=== PATIENT | male | born 1955 | race Caucasian/White ===

== ENCOUNTER 2016-08-16 21:58 | Emergency (ER) | payer MEDICARE ==
[2016-08-16] MEDS ORDERED: ASPIRIN 81 MG TABLET, CHEWABLE PO ONE (22:07)
[2016-08-16] MEDS ORDERED: NITROGLYCERIN 0.4 MG/TAB 25 TAB/BOTTLE SL PRN (23:53)
--- NOTE | 2016-08-16 23:59 | ER Document Report ---
ED Cardiac - General Chief Complaint: Chest Pain Stated Complaint: CHEST PAIN Notes: The patient is a 61-year-old male, past medical history hypertension, hyperlipidemia, smoker, presents with 3 days of constant epigastric and lower sternal chest pain. Pain is a dull ache and is not associated with exertion or food. He has not had this in the past. He denies shortness of breath, nausea, vomiting, tingling, fevers, leg swelling, headache or back pain. TRAVEL OUTSIDE OF THE [place] IN LAST 30 DAYS: No - Related Data Allergies/Adverse Reactions: Penicillins Allergy (Mild, Verified 07/31/14 23:28) Hives azithromycin [From Zithromax] Allergy (Verified 07/31/14 23:28) Past Medical History - General Information source: Patient - Social History Smoking Status: Current Every Day Smoker Family History: Reviewed & Not Pertinent Patient has suicidal ideation: No Patient has homicidal ideation: No - Past Medical History Cardiac Medical History: Reports: Hx Atrial Fibrillation, Hx Hypercholesterolemia, Hx Hypertension Denies: Hx Congestive Heart Failure, Hx Coronary Artery Disease, Hx Heart Attack, Hx Peripheral Vascular Disease, Hx Pulmonary Embolism, Hx Heart Murmur Pulmonary Medical History: Reports: Hx Asthma, Hx Bronchitis, Hx COPD, Hx Pneumonia Denies: Hx Respiratory Failure, Hx Sleep Apnea, Hx Tuberculosis Neurological Medical History: Denies: Hx Cerebrovascular Accident, Hx Seizures Endocrine Medical History: Denies: Hx Graves' Disease, Hx Hyperthyroidism, Hx Hypothyroidism Renal/ Medical History: Denies: Hx Benign Prostatic Hyperplasia, Hx End Stage Renal Disease, Hx Kidney Stones, Hx Peritoneal Dialysis Malignancy Medical History: Denies Hx Leukemia, Denies Hx Lung Cancer GI Medical History: Denies: Hx Crohn's Disease, Hx Gastroesophageal Reflux Disease, Hx Hiatal Hernia, Hx Irritable Bowel, Hx Liver Failure, Hx Ulcer Musculoskeltal Medical History: Denies Hx Arthritis, Denies Hx Fibromyalgia, Denies Hx Multiple Sclerosis, Denies Hx Muscular Dystrophy Psychiatric Medical History: Denies: Hx Bipolar Disorder, Hx Dementia, Hx Depression, Hx Post Traumatic Stress Disorder, Hx Schizophrenia Traumatic Medical History: Reports: Hx Fractures - pelvis Infectious Medical History: Denies: Hx HIV Past Surgical History: Reports: Hx Orthopedic Surgery, Hx Testicular Surgery, Hx Tonsillectomy. Denies: Hx Appendectomy, Hx Bowel Surgery, Hx Cholecystectomy , Hx Colostomy, Hx Coronary Artery Bypass Graft, Hx Gastric Bypass Surgery, Hx Herniorrhaphy, Hx Pacemaker - Immunizations Hx Diphtheria, Pertussis, Tetanus Vaccination: Yes Hx Pneumococcal Vaccination: 11/02/09 Review of Systems - Review of Systems Notes: REVIEW OF SYSTEMS: CONSTITUTIONAL: -fevers, -chills EENT: -eye pain, -difficulty swallowing, -nasal congestion CARDIOVASCULAR: +chest pain, -syncope. RESPIRATORY: -cough, -SOB GASTROINTESTINAL: -abdominal pain, -nausea, -vomiting, -diarrhea GENITOURINARY: -dysuria, -hematuria MUSCULOSKELETAL: -back pain, -neck pain SKIN: -rash or skin lesions. HEMATOLOGIC: -easy bruising or bleeding. LYMPHATIC: -swollen, enlarged glands. NEUROLOGICAL: -altered mental status or loss of consciousness, -headache, - neurologic symptoms PSYCHIATRIC: -anxiety, -depression. ALL OTHER SYSTEMS REVIEWED AND NEGATIVE. Physical Exam - Vital signs Vitals: Temp Pulse Resp BP Pulse Ox 98.1 F 81 23 H 126/76 H 95 08/16/16 22:04 08/16/16 22:04 08/16/16 22:04 08/16/16 22:04 08/16/16 22:04 - Notes Notes: PHYSICAL EXAMINATION: GENERAL: Well-appearing, well-nourished and in no acute distress. HEAD: Atraumatic, normocephalic. EYES: Pupils equal round and reactive to light, extraocular movements intact, sclera anicteric, conjunctiva are normal. ENT: nares patent, oropharynx clear without exudates. Moist mucous membranes. NECK: Normal range of motion, supple without lymphadenopathy LUNGS: Breath sounds clear to auscultation bilaterally and equal. No wheezes rales or rhonchi. HEART: Regular rate and rhythm without murmurs ABDOMEN: Soft, nontender, normoactive bowel sounds. No guarding, no rebound. No masses appreciated. EXTREMITIES: Normal range of motion, no pitting or edema. No cyanosis. NEUROLOGICAL: Cranial nerves grossly intact. Normal speech, normal gait. Normal sensory, motor, and reflex exams. PSYCH: Normal mood, normal affect. SKIN: Warm, Dry, normal turgor, no rashes or lesions noted. Course - Re-evaluation Re-evalutation: Pt's HEART score is 3. Symptoms atypical for PE or aortic dissection at this time. Nitro did not change his pain. Offered patient admission and further evaluation, but he would like to follow-up with his primary care physician, Dr. Pandey, on Friday. Given strict return precautions and he understands. - Vital Signs Vital signs: Temp Pulse Resp BP Pulse Ox 98.1 F 60 20 110/76 94 08/16/16 22:04 08/17/16 00:07 08/17/16 01:01 08/17/16 01:00 08/17/16 01:01 - Laboratory Result Diagrams: 08/17/16 00:15 08/17/16 00:15 Laboratory results interpreted by me: 08/17/16 08/17/16 00:15 00:15 WBC 11.9 H RDW 14.7 H Chloride 108 H Glucose 150 H Creatine Kinase 54 L - Diagnostic Test Radiology reviewed: Image reviewed, Reports reviewed - EKG Interpretation by Me EKG shows normal: Sinus rhythm, [place], Intervals, QRS Complexes, ST-T Waves When compared to previous EKG there are: No significant change Discharge - Discharge Clinical Impression: Chest pain Qualifiers: Chest pain type: unspecified Qualified Code(s): R07.9 - Chest pain, unspecified Condition: Good Disposition: HOME, SELF-CARE Additional Instructions: CHEST PAIN OF UNCLEAR CAUSE: The exact cause of your chest pain isn't clear. Fortunately, there is no evidence of a dangerous medical condition. Further testing may be required to find the source of the pain. Most often, we find that this pain is coming from the chest wall -- the muscles or rib joints in the chest. But chest pain can come from the lung and lung lining, the esophagus, the heart valves or heart lining, and even the stomach or gallbladder. Rest. Eat lightly until the pain is gone. We may prescribe medicine for pain and inflammation. You should call the physician immediately if the pain radiates to the shoulder, jaw or arms; if you start to run a fever or develop a cough; or if you develop shortness of breath, or other new or alarming symptoms. NORMAL EXAM AND WORKUP: At this time, your examination and workup show no significant abnormality. No significant abnormal physical findings were noted. All laboratory, EKG, and imaging (x-ray, CT scans, ultrasound) studies that were ordered show no significant abnormality. Although your examination and all studies that were ordered showed no significant abnormal finding, there are no examinations and no studies that are 100% accurate. There is always the possibility that some abnormality could exist and not be detected with physical examination or within the limits and capabilities of laboratory and other studies. You should return or follow up as you were instructed on your visit today for further evaluation if your symptoms do not resolve. CHEST WALL PAIN: Your chest pain may be coming from the chest wall. This is often caused by straining the muscles or joints in the chest during physical activity, direct trauma, coughing, or vigorous vomiting. Persons with arthritis are especially prone to this type of pain, due to inflammation of the cartilage joints near the breast bone. Occasionally, no cause can be found. Rest from strenuous physical activity. This kind of chest pain is usually made worse by movement of the chest. Depending on the symptoms, we may prescribe medicine for pain, muscle relaxation, and antiinflammatory effects. If the pain is new, and seems to be due to muscle strain, cold packs can help. Otherwise, apply gentle warmth to the painful area for 15 minutes every hour or two. You should call contact the doctor immediately if things change. Further evaluation is needed if you develop a fever or cough, if the nature of the pain changes, or if you become short of breath. ANGINA EPISODE: Your physician has diagnosed the pain you experienced as an episode of angina. Angina occurs when a portion of the heart muscle temporarily lacks oxygen. It does not cause any permanent heart damage, but serves as a warning. Hospitalization is not necessary now. Evaluation of your cardiac condition , and medical therapy for angina will be necessary. It's important you be sure to keep all appointments and take medication exactly as prescribed. Angina is usually treated with a type of "nitrate" medication. This is available as ointment, pills, or sublingual (under the tongue) tablets. Depending on your clinical situation, other medications may be added to help control angina. These may include beta blockers or calcium blockers. If episodes of angina are occurring with increased frequency, or if chest pain lasts longer than 15 minutes or does not respond to nitroglycerin, you must seek emergency medical care immediately. ACID REFLUX DISEASE (GERD): Gastro-Esophageal Reflux Disease (GERD) is caused by stomach acid refluxing back up into the esophagus. The valve at the end of the esophagus may be weak. This is common in persons with a hiatal hernia. GERD symptoms can include indigestion, chest pain, heartburn, or food "sticking." Certain foods, alcohol, and aspirin can make GERD worse. Treatment depends on the severity. Usually, antacids or acid-suppressing medicines are used. When the esophagus is acutely inflamed, the physician will often prescribe membrane-protective drugs such as Carafate. Some patients benefit from medication such as Reglan that tightens the valve at the top of the stomach. Avoid those foods that bring on your symptoms. For many people, these foods are coffee, chocolate, onions, garlic, and carbonated drinks. Don't use alcohol, aspirin, caffeine, or tobacco. Don't eat late at night -- within 4 hours of bedtime. Don't over-eat. If necessary, elevate the head of your bed about 4 inches so that stomach acid will not roll up into your esophagus. Call the doctor if you develop severe chest pain, inability to swallow fluids, fever, or worsening symptoms. ASPIRIN: Aspirin has been shown to have a beneficial effect on blood circulation by reducing the clotting effect of platelets in the blood. These beneficial effects can be achieved by taking just a single baby (81 mg) aspirin a day. It is recommended that any person over the age of forty take a single baby aspirin every day for heart and brain circulation, unless you are allergic to aspirin or have some significant bleeding disorder. It is strongly recommended that people who have proven cardiac or blood circulation disturbances should take a baby aspirin every day. NITRATES: Nitroglycerin and related longer-acting nitrate medications are used to prevent or treat attacks of angina. These medicines dilate blood vessels, decreasing the work of the heart, and improving its supply of oxygen. Many different forms are available, including sublingual tablets (used under the tongue), sprays, skin patches, and long-acting pills. If the particular form of medication you have been given is not working well for you, contact your doctor. Long-acting forms: Take exactly as prescribed. Sudden stopping of medication can provoke increased attacks. Sublingual tabs or spray: A headache will usually occur with use. Sit or lie while waiting for the pain to go away. If angina doesn't respond to three doses (five minutes apart), call for emergency assistance. FOLLOW-UP CARE: If you have been referred to a physician for follow-up care, call the physician s office for an appointment as you were instructed or within the next two days. If you experience worsening or a significant change in your symptoms, notify the physician immediately or return to the Emergency Department at any time for re-evaluation.
--- NOTE | 2016-08-17 00:09 | EKG REPORT ---
SEVERITY:- NORMAL ECG - SINUS RHYTHM : Confirmed by: Martínez Lozano MD 17-Aug-2016 00:08:50
[2016-08-17 00:28] LABS: ABSOLUTE BASOPHILS # (AUTO) 0.1 10^3/uL (0.0-0.2); ABSOLUTE EOSINOPHILS # (AUTO) 0.4 10^3/uL (0.0-0.6); ABSOLUTE LYMPHOCYTES (AUTO) 2.7 10^3/uL (0.5-4.7); ABSOLUTE MONOCYTES (AUTO) 0.8 10^3/uL (0.1-1.4); ABSOLUTE NEUT (AUTO) 7.8 10^3/uL (1.7-8.2); BASOPHILS % (AUTO) 1.1 % (0-2); EOSINOPHILS % (AUTO) 3.6 % (0-6); LYMPHOCYTES % (AUTO) 23.1 % (13-45); MEAN CORPUSCULAR HEMOGLOBIN 30.8 pg (27.0-33.4); MEAN CORPUSCULAR HGB CONC 35.1 g/dL (32.0-36.0); MEAN CORPUSCULAR VOLUME 88 fl (80-97); MONOCYTES % (AUTO) 6.9 % (3-13); RED BLOOD COUNT 4.55 10^6/uL (4.35-5.55); RED CELL DISTRIBUTION WIDTH 14.7 % (11.5-14.0); SEGMENTED NEUTROPHILS % (AUTO) 65.3 % (42-78); WHITE BLOOD COUNT 11.9 10^3/uL (4.0-10.5)
[2016-08-17 00:49] LABS: ANION GAP 11 (5-19); BLOOD UREA NITROGEN 14 mg/dL (7-20); CALCIUM 9.3 mg/dL (8.4-10.2); CARBON DIOXIDE 25 mmol/L (22-30); CHLORIDE 108 mmol/L (98-107); CREATINE KINASE 54 U/L (55-170); CREATININE RESULT 0.71 mg/dL (0.52-1.25); GLUCOSE 150 mg/dL (75-110); POTASSIUM 3.6 mmol/L (3.6-5.0); SODIUM 144.2 mmol/L (137-145)
[2016-08-17 01:03] VITALS: BP 110/76
[2016-08-17 01:12] LABS: TROPONIN I < 0.012 ng/mL
[2016-08-17] MEDS ORDERED: HYDROCODONE/ACETAMINOPHEN 5-325 MG TABLET PO ONE (01:56)
== END 2016-08-17 02:07 | disposition home or self-care (01) ==
LOC: ER 21:58
DX: R07.9 Chest pain, unspecified (principal); R10.13 Epigastric pain; I10 Essential (primary) hypertension; E78.5 Hyperlipidemia, unspecified; F17.200 Nicotine dependence, unspecified, uncomplicated; I48.91 Unspecified atrial fibrillation; J44.9 Chronic obstructive pulmonary disease, unspecified; Z88.3 Allergy status to other anti-infective agents; Z88.0 Allergy status to penicillin
CPT/HCPCS: 93005; 99285; 36415; 82550; 85025; 80048; 84484; 83880; 71020; 93010; A9270 ×2

== ENCOUNTER 2016-08-18 16:37 | Observation (INO) | payer MEDICARE ==
[~2016-08-18 16:37] MED LIST: AMINOPHYLLINE INJ/PF 250 MG/10 ML SDV IV ONE; REGADENOSON INJ 0.4 MG/5 ML DISP.SYRIN IV ONE
[2016-08-18] MEDS ORDERED: ASPIRIN 81 MG TABLET, CHEWABLE PO ONE (17:03)
--- NOTE | 2016-08-18 17:07 | ER Document Report ---
ED Medical Screen (RME) - General Chief Complaint: Chest Pain Stated Complaint: CHEST PAIN Notes: Patient is here to be evaluated because he says that he's having substernal chest pain associated with nausea, lightheaded, blood pressure of. He was seen in this emergency department on Friday for the same complaint and his workup was negative and he was sent home. He says the pain is located in the mid substernal region and comes and goes. Has never had any known heart disease. Does have COPD and remains a smoker. TRAVEL OUTSIDE OF THE [place] IN LAST 30 DAYS: No - Related Data Allergies/Adverse Reactions: Penicillins Allergy (Mild, Verified 07/31/14 23:28) Hives azithromycin [From Zithromax] Allergy (Verified 07/31/14 23:28) Past Medical History - Past Medical History Cardiac Medical History: Reports: Hx Atrial Fibrillation, Hx Hypercholesterolemia, Hx Hypertension Denies: Hx Congestive Heart Failure, Hx Coronary Artery Disease, Hx Heart Attack, Hx Peripheral Vascular Disease, Hx Pulmonary Embolism, Hx Heart Murmur Pulmonary Medical History: Reports: Hx Asthma, Hx Bronchitis, Hx COPD, Hx Pneumonia Denies: Hx Respiratory Failure, Hx Sleep Apnea, Hx Tuberculosis Neurological Medical History: Denies: Hx Cerebrovascular Accident, Hx Seizures Endocrine Medical History: Denies: Hx Graves' Disease, Hx Hyperthyroidism, Hx Hypothyroidism Renal/ Medical History: Denies: Hx Benign Prostatic Hyperplasia, Hx End Stage Renal Disease, Hx Kidney Stones, Hx Peritoneal Dialysis Malignancy Medical History: Denies Hx Leukemia, Denies Hx Lung Cancer GI Medical History: Denies: Hx Crohn's Disease, Hx Gastroesophageal Reflux Disease, Hx Hiatal Hernia, Hx Irritable Bowel, Hx Liver Failure, Hx Ulcer Musculoskeltal Medical History: Denies Hx Arthritis, Denies Hx Fibromyalgia, Denies Hx Multiple Sclerosis, Denies Hx Muscular Dystrophy Psychiatric Medical History: Denies: Hx Bipolar Disorder, Hx Dementia, Hx Depression, Hx Post Traumatic Stress Disorder, Hx Schizophrenia Traumatic Medical History: Reports: Hx Fractures - pelvis Infectious Medical History: Denies: Hx HIV Past Surgical History: Reports: Hx Orthopedic Surgery, Hx Testicular Surgery, Hx Tonsillectomy. Denies: Hx Appendectomy, Hx Bowel Surgery, Hx Cholecystectomy , Hx Colostomy, Hx Coronary Artery Bypass Graft, Hx Gastric Bypass Surgery, Hx Herniorrhaphy, Hx Pacemaker - Immunizations Hx Diphtheria, Pertussis, Tetanus Vaccination: Yes Physical Exam - Vital signs Vitals: Temp Pulse Resp BP Pulse Ox 98.3 F 66 16 171/108 H 97 08/18/16 16:41 08/18/16 16:41 08/18/16 16:41 08/18/16 16:41 08/18/16 16:41 Course - Vital Signs Vital signs: Temp Pulse Resp BP Pulse Ox 98.3 F 66 16 171/108 H 97 08/18/16 16:41 08/18/16 16:41 08/18/16 16:41 08/18/16 16:41 08/18/16 16:41
--- NOTE | 2016-08-18 17:28 | ER Document Report ---
ED General - General Chief Complaint: Chest Pain Stated Complaint: CHEST PAIN Mode of Arrival: Ambulatory Information source: Patient Notes: 61-year-old presents with complaints of chest pain. Patient notes family history of coronary artery disease, he had chest pain on Friday was seen did not wish to be admitted and went home, patient had chest pain again today with tingling sensation pain down the left arm TRAVEL OUTSIDE OF THE [place] IN LAST 30 DAYS: No - HPI Onset: Other Onset/Duration: Intermittent Quality of pain: Pressure Severity: Mild Pain Level: 1 Associated symptoms: Chest pain Exacerbated by: Denies Relieved by: Denies Similar symptoms previously: Yes Recently seen / treated by doctor: Yes - Related Data Allergies/Adverse Reactions: Penicillins Allergy (Mild, Verified 07/31/14 23:28) Hives azithromycin [From Zithromax] Allergy (Verified 07/31/14 23:28) Past Medical History - Social History Smoking Status: Never Smoker Cigarette use (# per day): No Chew tobacco use (# tins/day): No Smoking Education Provided: No Family History: Reviewed & Not Pertinent Patient has suicidal ideation: No Patient has homicidal ideation: No - Past Medical History Cardiac Medical History: Reports: Hx Atrial Fibrillation, Hx Hypercholesterolemia, Hx Hypertension Denies: Hx Congestive Heart Failure, Hx Coronary Artery Disease, Hx Heart Attack, Hx Peripheral Vascular Disease, Hx Pulmonary Embolism, Hx Heart Murmur Pulmonary Medical History: Reports: Hx Asthma, Hx Bronchitis, Hx COPD, Hx Pneumonia Denies: Hx Respiratory Failure, Hx Sleep Apnea, Hx Tuberculosis Neurological Medical History: Denies: Hx Cerebrovascular Accident, Hx Seizures Endocrine Medical History: Denies: Hx Graves' Disease, Hx Hyperthyroidism, Hx Hypothyroidism Renal/ Medical History: Denies: Hx Benign Prostatic Hyperplasia, Hx End Stage Renal Disease, Hx Kidney Stones, Hx Peritoneal Dialysis Malignancy Medical History: Denies Hx Leukemia, Denies Hx Lung Cancer GI Medical History: Denies: Hx Crohn's Disease, Hx Gastroesophageal Reflux Disease, Hx Hiatal Hernia, Hx Irritable Bowel, Hx Liver Failure, Hx Ulcer Musculoskeltal Medical History: Denies Hx Arthritis, Denies Hx Fibromyalgia, Denies Hx Multiple Sclerosis, Denies Hx Muscular Dystrophy Psychiatric Medical History: Denies: Hx Bipolar Disorder, Hx Dementia, Hx Depression, Hx Post Traumatic Stress Disorder, Hx Schizophrenia Traumatic Medical History: Reports: Hx Fractures - pelvis Infectious Medical History: Denies: Hx HIV Past Surgical History: Reports: Hx Orthopedic Surgery, Hx Testicular Surgery, Hx Tonsillectomy. Denies: Hx Appendectomy, Hx Bowel Surgery, Hx Cholecystectomy , Hx Colostomy, Hx Coronary Artery Bypass Graft, Hx Gastric Bypass Surgery, Hx Herniorrhaphy, Hx Pacemaker - Immunizations Hx Diphtheria, Pertussis, Tetanus Vaccination: Yes Hx Pneumococcal Vaccination: 11/02/09 Review of Systems - Review of Systems Notes: REVIEW OF SYSTEMS: CONSTITUTIONAL : Denies fever, chills, or sweats. Denies recent illness. EENT: Denies eye, ear, throat, or mouth pain or symptoms. Denies nasal or sinus congestion or discharge. Denies throat, tongue, or mouth swelling or difficulty swallowing. CARDIOVASCULAR: Admits to chest pain rating down the left arm RESPIRATORY: Denies cough, cold, or chest congestion. Denies shortness of breath, difficulty breathing, or wheezing. GASTROINTESTINAL: Denies abdominal pain or distention. Denies nausea, vomiting , or diarrhea. Denies blood in vomitus, stools, or per rectum. Denies black, tarry stools. Denies constipation. GENITOURINARY: Denies difficulty urinating, painful urination, burning, frequency, blood in urine, or discharge. MUSCULOSKELETAL: Denies back or neck pain or stiffness. Denies joint pain or swelling. SKIN: Denies rash, lesions or sores. HEMATOLOGIC : Denies easy bruising or bleeding. LYMPHATIC: Denies swollen, enlarged glands. NEUROLOGICAL: Denies confusion or altered mental status. Denies passing out or loss of consciousness. Denies dizziness or lightheadedness. Denies headache. Denies weakness or paralysis or loss of use of either side. Denies problems with gait or speech. Denies sensory loss, numbness, or tingling. Denies seizures. PSYCHIATRIC: Denies anxiety or stress. Denies depression, suicidal ideation, or homicidal ideation. ALL OTHER SYSTEMS REVIEWED AND NEGATIVE. Dictation was performed using [employer] voice recognition software PHYSICAL EXAMINATION: GENERAL: Well-appearing, well-nourished and in no acute distress. HEAD: Atraumatic, normocephalic. EYES: Pupils equal round and reactive to light, extraocular movements intact, sclera anicteric, conjunctiva are normal. ENT: Nares patent, oropharynx clear without exudates. Moist mucous membranes. NECK: Normal range of motion, supple without lymphadenopathy LUNGS: Breath sounds clear to auscultation bilaterally and equal. No wheezes rales or rhonchi. HEART: Regular rate and rhythm without murmurs ABDOMEN: Soft, nontender, nondistended abdomen. No guarding, no rebound. No masses appreciated. Musculoskeletal: Normal range of motion, no pitting or edema. No cyanosis. NEUROLOGICAL: Cranial nerves grossly intact. Normal speech, normal gait. Normal sensory, motor exams PSYCH: Normal mood, normal affect. SKIN: Warm, Dry, normal turgor, no rashes or lesions noted. Physical Exam - Vital signs Vitals: Temp Pulse Resp BP Pulse Ox 98.3 F 66 16 171/108 H 97 08/18/16 16:41 08/18/16 16:41 08/18/16 16:41 08/18/16 16:41 08/18/16 16:41 Course - Re-evaluation Re-evalutation: 08/18/16 18:51 I believe patient requires an ACS rule out and evaluation, lab work is pending which was delayed due to difficulty obtaining blood. Initial EKG noted no ST elevations 08/18/16 19:49 Patient will be admitted to his primary care physician for an ACS rule out - Vital Signs Vital signs: Temp Pulse Resp BP Pulse Ox 98.3 F 66 21 H 171/108 H 95 08/18/16 16:41 08/18/16 16:41 08/18/16 18:00 08/18/16 16:41 08/18/16 18:00 - Laboratory Result Diagrams: 08/18/16 18:46 08/18/16 18:46 Laboratory results interpreted by me: 08/18/16 08/18/16 18:46 18:46 WBC 11.8 H RDW 14.3 H Chloride 109 H Total Protein 6.2 L - Diagnostic Test Radiology reviewed: Image reviewed, Reports reviewed - EKG Interpretation by Me EKG shows normal: Sinus rhythm, [place], Intervals, QRS Complexes Discharge - Discharge Clinical Impression: Dyslipidemia CAD (coronary artery disease) Qualifiers: Coronary Disease-Associated Artery/Lesion type: [place] artery [place] vs. transplanted heart: [place] heart Associated angina: angina presence unspecified Qualified Code(s): I25.10 - Atherosclerotic heart disease of [place] coronary artery without angina pectoris Chest pain Qualifiers: Chest pain type: unspecified Qualified Code(s): R07.9 - Chest pain, unspecified Condition: Stable Disposition: ADMITTED OBSERVATION Admitting Provider: Dannie Unit Admitted: Telemetry
--- NOTE | 2016-08-18 17:54 | EKG REPORT ---
SEVERITY:- NORMAL ECG - SINUS RHYTHM : Confirmed by: Martínez Lozano MD 18-Aug-2016 17:53:21
[2016-08-18 18:52] LABS: ABSOLUTE BASOPHILS # (AUTO) 0.1 10^3/uL (0.0-0.2); ABSOLUTE EOSINOPHILS # (AUTO) 0.4 10^3/uL (0.0-0.6); ABSOLUTE LYMPHOCYTES (AUTO) 3.3 10^3/uL (0.5-4.7); ABSOLUTE MONOCYTES (AUTO) 0.8 10^3/uL (0.1-1.4); ABSOLUTE NEUT (AUTO) 7.1 10^3/uL (1.7-8.2); EOSINOPHILS % (AUTO) 3.8 % (0-6); HEMATOCRIT 40.7 % (37.9-51.0); HEMOGLOBIN 13.8 g/dL (13.5-17.0); HGB HCT DIFFERENCE 0.7; LYMPHOCYTES % (AUTO) 27.6 % (13-45); MEAN CORPUSCULAR HEMOGLOBIN 29.8 pg (27.0-33.4); MEAN CORPUSCULAR HGB CONC 33.9 g/dL (32.0-36.0); MEAN CORPUSCULAR VOLUME 88 fl (80-97); MONOCYTES % (AUTO) 6.8 % (3-13); RED BLOOD COUNT 4.63 10^6/uL (4.35-5.55); RED CELL DISTRIBUTION WIDTH 14.3 % (11.5-14.0); SEGMENTED NEUTROPHILS % (AUTO) 60.8 % (42-78); WHITE BLOOD COUNT 11.8 10^3/uL (4.0-10.5)
[2016-08-18 19:16] LABS: ALANINE AMINOTRANSFERASE 39 U/L (21-72); ALBUMIN 3.7 g/dL (3.5-5.0); ALKALINE PHOSPHATASE 100 U/L (38-126); ANION GAP 10 (5-19); ASPARTATE AMINO TRANSFERASE 21 U/L (17-59); BILIRUBIN,DIRECT 0.2 mg/dL (0.0-0.4); BILIRUBIN,TOTAL 0.5 mg/dL (0.2-1.3); BLOOD UREA NITROGEN 16 mg/dL (7-20); CALCIUM 9.3 mg/dL (8.4-10.2); CARBON DIOXIDE 23 mmol/L (22-30); CHLORIDE 109 mmol/L (98-107); CREATINE KINASE 86 U/L (55-170); CREATININE RESULT 0.71 mg/dL (0.52-1.25); GLUCOSE 96 mg/dL (75-110); POTASSIUM 4.2 mmol/L (3.6-5.0); SODIUM 142.2 mmol/L (137-145); TOTAL PROTEIN 6.2 g/dL (6.3-8.2)
[2016-08-18 19:27] LABS: CREATINE KINASE MB 0.93 ng/mL (<4.55)
[2016-08-18 19:29] LABS: TROPONIN I < 0.012 ng/mL
[2016-08-18] MEDS ORDERED: MORPHINE SULFATE 10 MG/ML INJ IV ONE (19:49)
[2016-08-18 21:41] LABS: CREATINE KINASE MB 0.91 ng/mL (<4.55)
[2016-08-18 21:42] LABS: TROPONIN I < 0.012 ng/mL
[2016-08-18] MEDS ORDERED: ACETAMINOPHEN 325 MG TABLET PO PRN (22:56)
[2016-08-18] MEDS ORDERED: OXYCODONE HCL IR 5 MG TABLET PO PRN (23:08)
[2016-08-19] MEDS ORDERED: CLONIDINE HCL 0.1 MG TABLET PO ONE (00:45)
[2016-08-19] MEDS ORDERED: ACETAMINOPHEN 325 MG TABLET PO ONE (00:45)
[2016-08-19] MEDS ORDERED: SERTRALINE HCL 50 MG TABLET PO ONE (00:45)
[2016-08-19] MEDS ORDERED: TIOTROPIUM BROMIDE DPI 5 CAP/KIT (18 MCG/CAP) IH SCH ×2 (01:00→10:00)
[2016-08-19] MEDS: ALBUTEROL SULFATE 0.083% NEB 2.5 MG/3 ML AMPUL NEB PRN ×2 (01:10→02:20)
[2016-08-19] MEDS ORDERED: ACETAMINOPHEN 325 MG TABLET PO PRN (01:13)
[2016-08-19] MEDS: OXYCODONE HCL IR 5 MG TABLET PO PRN ×2 (01:29→12:31)
[2016-08-19] MEDS ORDERED: TIOTROPIUM BROMIDE DPI 5 CAP/KIT (18 MCG/CAP) IH ONE ×2 (01:34→02:30)
[2016-08-19 04:15] LABS: CREATINE KINASE MB 0.98 ng/mL (<4.55)
[2016-08-19 04:17] LABS: TROPONIN I < 0.012 ng/mL
[2016-08-19] MEDS ORDERED: ALBUTEROL SULFATE 0.083% NEB 2.5 MG/3 ML AMPUL NEB PRN (06:20)
[2016-08-19] MEDS: ALPRAZOLAM 0.25 MG TABLET PO PRN ×2 (06:27→22:00)
[2016-08-19] MEDS: FINASTERIDE 5 MG TABLET PO SCH (07:57)
[2016-08-19] MEDS ORDERED: DEXTROSE 40% GEL 15 GM TUBE PO PRN ×2 (08:53)
[2016-08-19] MEDS ORDERED: DEXTROSE 50%-WATER 25 GM/50 ML DISP.SYRIN IV PRN ×2 (08:53)
[2016-08-19] MEDS ORDERED: GLUCAGON,HUMAN RECOMB 1 MG INJ SUBCUT PRN (08:53)
[2016-08-19] MEDS ORDERED: METOPROLOL SUCCINATE 50 MG TAB.SR.24H PO SCH (10:00)
[2016-08-19] MEDS ORDERED: ASPIRIN 81 MG TABLET, CHEWABLE PO SCH (10:00)
[2016-08-19] MEDS ORDERED: VILANTEROL PO SCH (10:00)
[2016-08-19] MEDS ORDERED: FLUTICASONE PO SCH (10:00)
[2016-08-19 11:43] LABS: CREATINE KINASE MB 0.92 ng/mL (<4.55)
[2016-08-19 11:52] LABS: TROPONIN I < 0.012 ng/mL
[2016-08-19] MEDS: CLONIDINE HCL 0.1 MG TABLET PO SCH ×3 (12:30→19:27)
[2016-08-19] MEDS: ASPIRIN 81 MG TABLET, ENT COATED PO SCH (12:32)
[2016-08-19] MEDS: TAMSULOSIN HCL 0.4 MG CAP.SR.24H PO SCH (12:32)
[2016-08-19] MEDS: TIOTROPIUM BROMIDE DPI 5 CAP/KIT (18 MCG/CAP) IH SCH (13:10)
--- NOTE | 2016-08-19 19:22 | PDOC H&P ---
History of Present Illness Admission Date/PCP: 08/18/16 20:51 LILO JEREZ MD History of Present Illness: DAISY PURDY is a 61 year old male, he came to the emergency room because of substernal chest pain, he was seen earlier emergency room on Friday when he came for evaluation of the same symptom, he was to be admitted but he left the emergency room. He returned to the emergency room again with substernal chest pain, the chest pain is not provoked by exertion nor relieved by rest but the chest pain radiates to the left upper extremities. There was associated hypertension in the emergency room. He has risk factors for ischemic heart disease including tobacco abuse actively smoking, hypertension Past Medical History Cardiac Medical History: Reports: Hyperlipidema, Hypertension Pulmonary Medical History: Reports: Asthma, Bronchitis, Chronic Obstructive Pulmonary Disease (COPD), Pneumonia Past Surgical History Past Surgical History: Reports: Orthopedic Surgery, Tonsillectomy Social History Smoking Status: Current Every Day Smoker Frequency of Alcohol Use: None Hx Recreational Drug Use: No Hx Prescription Drug Abuse: No Family History Family History: Reviewed & Not Pertinent Parental Family History Reviewed: Yes Children Family History Reviewed: Yes Sibling(s) Family History Reviewed.: Yes Medication/Allergy Home Medications: Albuterol Sulfate [Albuterol Sulfate 2.5mg/3 mL] 2.5 mg NEB QID 08/19/16 Albuterol Sulfate [Proair HFA] 2 puff IH Q4HP PRN 08/19/16 Aripiprazole [Abilify 2 mg Tablet] 2 mg PO DAILY 08/19/16 Aspirin [Aspirin 81 mg Chewable Tablet] 81 mg PO DAILY 08/19/16 Atorvastatin Calcium [Lipitor 80 mg Tablet] 80 mg PO DAILY 08/19/16 Clonidine HCl [Catapres 0.1 mg Tablet] 0.1 mg PO Q8 08/19/16 Finasteride [Proscar 5 mg Tablet] 5 mg PO DAILY 08/19/16 Fluticasone/Vilanterol [Breo Ellipta 200-25 Mcg INH] 1 puff IH DAILY 08/19/16 Lorazepam [Ativan 0.5 mg Tablet] 0.5 mg PO Q8HP PRN 08/19/16 Meclizine HCl [Antivert 25 mg Tablet] 25 mg PO TIDP PRN 08/19/16 Metoprolol Tartrate [Lopressor 50 mg Tablet] 50 mg PO Q12 08/19/16 Sertraline HCl [Zoloft] 100 mg PO DAILY 08/19/16 Tamsulosin HCl [Flomax 0.4 mg Cap.sr] 0.4 mg PO DAILY 08/19/16 Tiotropium [place] [Spiriva Handihaler 5 Cap/Kit (18 Mcg/Cap)] 1 puff IH DAILY 08/19/16 Valsartan/Hydrochlorothiazide [Valsartan-Hctz 320-12.5 mg Tab] 1 tab PO DAILY Allergies/Adverse Reactions: Penicillins Allergy (Mild, Verified 07/31/14 23:28) Hives azithromycin [From Zithromax] Allergy (Verified 07/31/14 23:28) Review of Systems Constitutional: ABSENT: chills, fever(s), headache(s), weight gain, weight loss Eyes: ABSENT: visual disturbances Ears: ABSENT: hearing changes Cardiovascular: PRESENT: chest pain Respiratory: ABSENT: cough, hemoptysis Gastrointestinal: ABSENT: abdominal pain, constipation, diarrhea, hematemesis, hematochezia, nausea, vomiting Genitourinary: ABSENT: dysuria, hematuria Musculoskeletal: ABSENT: joint swelling Integumentary: ABSENT: rash, wounds Neurological: ABSENT: abnormal gait, abnormal speech, confusion, dizziness, focal weakness, syncope Psychiatric: ABSENT: anxiety, depression, homidical ideation, suicidal ideation Endocrine: ABSENT: cold intolerance, heat intolerance, menstrual abnormalities, polydipsia, polyuria Hematologic/Lymphatic: ABSENT: easy bleeding, easy bruising, lymphadenopathy Physical Exam Vital Signs: Temp Pulse Resp BP Pulse Ox 97.8 F 58 L 16 144/89 H 95 08/19/16 16:00 08/19/16 16:33 08/19/16 16:33 08/19/16 16:00 08/19/16 16:33 Intake & Output 08/18/16 08/19/16 08/20/16 06:59 06:59 06:59 Intake Total 300 1200 Output Total 0 Balance 300 1200 Weight 71.5 kg General appearance: PRESENT: no acute distress, well-developed, well-nourished Head exam: PRESENT: atraumatic, normocephalic Eye exam: PRESENT: conjunctiva pink, EOMI, PERRLA Mouth exam: PRESENT: moist, tongue midline Neck exam: PRESENT: full ROM Respiratory exam: PRESENT: clear to auscultation krissy Cardiovascular exam: PRESENT: RRR, +S1, +S2 Pulses: PRESENT: normal dorsalis pedis pul, +2 pedal pulses bilateral Vascular exam: PRESENT: normal capillary refill GI/Abdominal exam: PRESENT: normal bowel sounds, soft Rectal exam: PRESENT: deferred Neurological exam: PRESENT: alert, awake, oriented to person, oriented to place , oriented to time, oriented to situation, CN II-XII grossly intact. ABSENT: motor sensory deficit Psychiatric exam: PRESENT: appropriate affect, normal mood Skin exam: PRESENT: dry, intact, warm Results Laboratory Results: 08/18/16 08/19/16 08/19/16 20:55 03:30 09:53 CK-MB (CK-2) 0.91 0.98 0.92 Troponin I < 0.012 < 0.012 < 0.012 Impressions: Chest X-Ray 08/18/16 17:03 IMPRESSION: COPD. NO ACUTE RADIOGRAPHIC FINDING IN THE CHEST. Assessment & Plan - Diagnosis (1) Chest pain Qualifiers: Chest pain type: unspecified Qualified Code(s): R07.9 - Chest pain, unspecified Is this a current diagnosis for this admission?: YesPlan: Patient with substernal chest pain, 3 sets of cardiac enzymes are negative for acute MO, Cardiolite stress test is ordered for AM
[2016-08-19] MEDS: FAMOTIDINE 20 MG TABLET PO PRN (19:27)
[2016-08-19] MEDS: SERTRALINE HCL 50 MG TABLET PO SCH (21:24)
[2016-08-19] MEDS: ATORVASTATIN CALCIUM 80 MG TABLET PO SCH (21:24)
[2016-08-19] MEDS: METOPROLOL SUCCINATE 50 MG TAB.SR.24H PO SCH (21:25)
[2016-08-20] MEDS: OXYCODONE HCL IR 5 MG TABLET PO PRN ×2 (04:33→13:24)
[2016-08-20] MEDS: CLONIDINE HCL 0.1 MG TABLET PO SCH ×3 (11:29→18:34)
[2016-08-20] MEDS: METOPROLOL SUCCINATE 50 MG TAB.SR.24H PO SCH ×2 (11:29→22:21)
[2016-08-20] MEDS: TIOTROPIUM BROMIDE DPI 5 CAP/KIT (18 MCG/CAP) IH SCH (11:38)
[2016-08-20] MEDS: FINASTERIDE 5 MG TABLET PO SCH (11:38)
[2016-08-20] MEDS: TAMSULOSIN HCL 0.4 MG CAP.SR.24H PO SCH (11:38)
[2016-08-20] MEDS: ASPIRIN 81 MG TABLET, ENT COATED PO SCH (11:38)
--- NOTE | 2016-08-20 11:54 | DRAGON STRESS TEST REPORT ---
INTRAVENOUS LEXISCAN CARDIOLITE STRESS TEST USING SINGLE PHOTON EMMISION COMPUTERIZED TOMOGRAPHIC. DATE OF PROCEDURE: August 20, 2016 INDICATION : Chest pain CARDIAC RISK FACTORS: Hypertension, dyslipidemia, smoking, family history of CAD RESTING EKG: Sinus rhythm, without any baseline ST-T wave changes STRESS EKG: No significant changes noted with LexiScan bolus REASON FOR TERMINATION: Protocol. PROCEDURE REPORT: Baseline heart rate 53 beats per minute with blood pressure of 132/84. Patient had no significant complaints. Heart rate at 2 minutes post bolus 102 with a blood pressure of 120/76. 3 minutes post bolus heart rate 76 with blood pressure of 148/95. No significant EKG changes were noted. Patient had no significant complaints during the procedure or postprocedure. Patient injected with Aminophyllin 75 mg at 3 minutes or later after Lexiscan bolus. CONCLUSIONS: Normal EKG and hemodynamic response to IV LexiScan. NUCLEAR DATA: At rest the patient was given 10.71 millicuries of technetium 99 sestamibi injected intravenously. As per protocol rest gated SPECT images were obtained. Subsequently the patient was given intravenous LexiScan at a dose of 0.4 mg in 5 mL intravenously, followed by flush with normal saline. Subsequently the stress dose of 32.6 millicuries of technetium 99 sestamibi was injected intravenously. As per protocol stress gated images were obtained. NUCLEAR INTERPRETATION: Both raw and processed data were used for interpretation. Visual, qualitative, computer-generated quantitative data was used. There was good myocardial uptake of technetium compound. Motion artifact and soft tissue attenuations were noted. Increased visceral uptake was noted. No definitive areas of transient perfusion defect noted. No definitive areas of fixed perfusion defect or scars noted. EKG gated imaging showed LV EF at 49 %, rest and stress gated EF similar visually. T. I D. ratio was 1.12. Lung heart ratio noted to be within normal limits 0.27. No significant extracardiac and abnormal radiotracer activities were noted. RV free wall uptake was noted to be within normal limits. IMPRESSION: Also refer to comments under nuclear interpretation. Also test results needs to be interpreted in the context of pretest probability. 1. There is no definitive scintigraphic evidence of LexiScan induced myocardial ischemia. 2. There is no definitive scintigraphic evidence of myocardial infarction/scar. 3. EKG gated imaging shows left ejection fraction of approximately 49 %. 4. Clinical correlation requested as occasionally single vessel disease or balanced ischemia could be missed. In approximately 10% of the cases Lexiscan may not cause adequate vasodilatory stress. RECOMMENDATIONS: Aggressive risk factor modification, medical therapy. Clinical correlation with echocardiogram derived ejection fraction. Inability to exercise by itself can lead to increased cardiovascular event risks. Consider cardiology consultation and or follow-up if clinically indicated. I AM AVAILABLE FOR CARDIOLOGY CONSULTATION AND FOLLOWUP IF REQUESTED BY PMD Leonard Butt M.D., [employer], Board certified in cardiovascular diseases, Nuclear cardiology, Echocardiography Cardiac CT and cardiac MRI Ph. [phone] [facility]
[2016-08-20] MEDS ORDERED: ONDANSETRON HCL 8 MG TABLET PO ONE (19:32)
[2016-08-20] MEDS ORDERED: MORPHINE SULFATE 10 MG/ML INJ IV ONE (19:32)
--- NOTE | 2016-08-20 19:42 | PDOC DISCHARGE SUMMARY ---
General - Admit/Disc Date/PCP Admission Date/Primary Care Provider: 08/18/16 20:51 LILO JEREZ MD Discharge Date: 08/20/16 - Discharge Diagnosis (1) Chest pain Is this a current diagnosis for this admission?: Yes (2) Dyslipidemia Is this a current diagnosis for this admission?: Yes (3) Hypertension Is this a current diagnosis for this admission?: Yes (4) COPD (chronic obstructive pulmonary disease) Is this a current diagnosis for this admission?: Yes (5) Chest pain with high risk for cardiac etiology Is this a current diagnosis for this admission?: Yes - Additional Information Discharge Diet: As Tolerated Discharge Activity: Activity As Tolerated Home Medications: Albuterol Sulfate [Albuterol Sulfate 2.5mg/3 mL] 2.5 mg NEB QID 08/19/16 Aripiprazole [Abilify 2 mg Tablet] 2 mg PO DAILY 08/19/16 Aspirin [Aspirin 81 mg Chewable Tablet] 81 mg PO DAILY 08/19/16 Atorvastatin Calcium [Lipitor 80 mg Tablet] 80 mg PO DAILY 08/19/16 Clonidine HCl [Catapres 0.1 mg Tablet] 0.1 mg PO Q8 08/19/16 Finasteride [Proscar 5 mg Tablet] 5 mg PO DAILY 08/19/16 Fluticasone/Vilanterol [Breo Ellipta 200-25 Mcg INH] 1 puff IH DAILY 08/19/16 Metoprolol Tartrate [Lopressor 50 mg Tablet] 50 mg PO Q12 08/19/16 Sertraline HCl [Zoloft] 100 mg PO DAILY 08/19/16 Tamsulosin HCl [Flomax 0.4 mg Cap.sr] 0.4 mg PO DAILY 08/19/16 Tiotropium [place] [Spiriva Handihaler 5 Cap/Kit (18 Mcg/Cap)] 1 puff IH DAILY 08/19/16 Valsartan/Hydrochlorothiazide [Valsartan-Hctz 320-12.5 mg Tab] 1 tab PO DAILY Acetaminophen [Tylenol 325 mg Tablet] 325 mg PO Q8HP PRN #0 tablet 08/20/16 History of Present Illness History of Present Illness: DAISY PURDY is a 61 year old male, he came to the emergency room because of substernal chest pain, he was seen earlier emergency room on Friday when he came for evaluation of the same symptom, he was to be admitted but he left the emergency room. He returned to the emergency room again with substernal chest pain, the chest pain is not provoked by exertion nor relieved by rest but the chest pain radiates to the left upper extremities. There was associated hypertension in the emergency room. He has risk factors for ischemic heart disease including tobacco abuse actively smoking, hypertension Hospital Course Hospital Course: Patient was admitted for evaluation of chest pain, salicylates of cardiac enzymes were negative for acute DC. A Lexiscan Cardiolite stress test was done there was no definitive scintigraphic evidence of Lexiscan induced myocardial ischemia, there is no definitive scintigraphic evidence of myocardial infarction/scar. Physical Exam Vital Signs: Temp Pulse Resp BP Pulse Ox 98.4 F 54 L 16 129/76 H 98 08/20/16 08:00 08/20/16 14:13 08/20/16 14:13 08/20/16 08:00 08/20/16 14:13 Intake & Output 08/19/16 08/20/16 08/21/16 06:59 06:59 06:59 Intake Total 300 1520 564 Output Total 0 4 Balance 300 1520 560 Weight 71.5 kg 71.5 kg General appearance: PRESENT: no acute distress, well-developed, well-nourished Head exam: PRESENT: atraumatic, normocephalic Eye exam: PRESENT: conjunctiva pink, EOMI, PERRLA Ear exam: PRESENT: normal external ear exam Mouth exam: PRESENT: moist, tongue midline Neck exam: PRESENT: full ROM Cardiovascular exam: PRESENT: RRR, +S1, +S2 GI/Abdominal exam: PRESENT: normal bowel sounds, soft Rectal exam: PRESENT: deferred Neurological exam: PRESENT: alert, awake, oriented to person, oriented to place , oriented to time, oriented to situation, CN II-XII grossly intact Psychiatric exam: PRESENT: appropriate affect, normal mood Skin exam: PRESENT: dry, intact, warm Results Laboratory Results: 08/18/16 08/19/16 08/19/16 20:55 03:30 09:53 CK-MB (CK-2) 0.91 0.98 0.92 Troponin I < 0.012 < 0.012 < 0.012 Impressions: Chest X-Ray 08/18/16 17:03 IMPRESSION: COPD. NO ACUTE RADIOGRAPHIC FINDING IN THE CHEST.
[2016-08-20] MEDS: ALPRAZOLAM 0.25 MG TABLET PO PRN (22:21)
[2016-08-20] MEDS: SERTRALINE HCL 50 MG TABLET PO SCH (22:21)
[2016-08-20] MEDS: ATORVASTATIN CALCIUM 80 MG TABLET PO SCH (22:21)
[2016-08-20] MEDS: FAMOTIDINE 20 MG TABLET PO PRN (22:28)
[2016-08-21] MEDS: OXYCODONE HCL IR 5 MG TABLET PO PRN (06:39)
[2016-08-21 10:04] VITALS: BP 129/76
== END 2016-08-21 10:40 | disposition home or self-care (01) ==
LOC: ER 16:37 → EH 20:09 → UNDOADMOB 20:09 → EH 20:51 → 4N 22:01
PROVIDERS: ADMIT Internal Medicine; ATTEND Internal Medicine
DX: R07.2 Precordial pain (principal); E78.5 Hyperlipidemia, unspecified; I10 Essential (primary) hypertension; J44.9 Chronic obstructive pulmonary disease, unspecified; F17.200 Nicotine dependence, unspecified, uncomplicated; R20.2 Paresthesia of skin; Z79.82 Long term (current) use of aspirin; Z79.899 Other long term (current) drug therapy; Z79.51 Long term (current) use of inhaled steroids; Z82.49 Family history of ischemic heart disease and other diseases of the circulatory system
CPT/HCPCS: 93005; 99285; 96374; 36415 ×2; 82553 ×2; 82550; 85025; 80053; 84484 ×2; 93017; 71010; 78452; 93010; A9500; A9270 ×24; J2785; J3490 ×3; J2270 ×2; J0280; Q9969; S0119

== ENCOUNTER 2017-02-18 09:03 | Emergency (ER) | payer MEDICARE ==
--- NOTE | 2017-02-18 09:36 | ER Document Report ---
ED Extremity Problem, Lower - General Chief Complaint: Ankle Injury Stated Complaint: ANKLE INJURY Time Seen by Provider: 02/18/17 09:31 Mode of Arrival: Wheelchair Information source: Patient Notes: 61-year-old male presents to ED for complaint of right ankle pain. He states he slipped on stairs he did not fall but he twisted his ankle. He states he has had pain to the medial and lateral aspects of the ankle with bruising and swelling. He states he heard a pop when his his toe caught in the carpet. He states he had some Percocet left over and he took one at 7 AM. TRAVEL OUTSIDE OF THE [place] IN LAST 30 DAYS: No - HPI Patient complains to provider of: Injury, Pain, Swelling Location: Ankle Occurred: This morning Where: Home, Indoors Onset/Duration: Sudden, Persistent, Worse Quality of pain: Sharp, Throbbing Severity: Moderate Context: Barefoot, Twisted Recent injury: Yes Associated symptoms: Graves a pop, Unable to bear weight Exacerbated by: Movement, Walking Relieved by: Elevation, Ice, Rest - Related Data Allergies/Adverse Reactions: Penicillins Allergy (Mild, Verified 07/31/14 23:28) Hives azithromycin [From Zithromax] Allergy (Verified 07/31/14 23:28) Past Medical History - General Information source: Patient - Social History Smoking Status: Current Every Day Smoker Cigarette use (# per day): Yes - Pack per day Chew tobacco use (# tins/day): No Smoking Education Provided: Yes - Less than 2 minutes Frequency of alcohol use: None Drug Abuse: None Occupation: None Lives with: Family Family History: Arthritis, CAD, COPD, DM, Hyperlipidemia, Hypertension Patient has suicidal ideation: No Patient has homicidal ideation: No - Past Medical History Cardiac Medical History: Reports: Hx Atrial Fibrillation, Hx Hypercholesterolemia, Hx Hypertension Pulmonary Medical History: Reports: Hx Asthma, Hx Bronchitis, Hx COPD, Hx Pneumonia Denies: Hx Respiratory Failure, Hx Sleep Apnea, Hx Tuberculosis EENT Medical History: Reports: None Neurological Medical History: Reports: None Endocrine Medical History: Reports: None Renal/ Medical History: Reports: Other - Testicular cancer Malignancy Medical History: Reports Hx Testicular Cancer GI Medical History: Reports: None Musculoskeltal Medical History: Reports Hx Arthritis, Reports Hx Musculoskeletal Deformity, Reports Hx Musculoskeletal Trauma Skin Medical History: Reports None Psychiatric Medical History: Reports: None Traumatic Medical History: Reports: Hx Fractures - pelvis, left ankle, left clavicle Infectious Medical History: Reports: None Past Surgical History: Reports: Hx Orthopedic Surgery - Pelvis left ankle left clavicle, Hx Testicular Surgery - Testicular cancer left testicle removed, Hx Tonsillectomy - Immunizations Hx Diphtheria, Pertussis, Tetanus Vaccination: Yes Hx Pneumococcal Vaccination: 11/02/09 Review of Systems - Review of Systems Constitutional: No symptoms reported EENT: No symptoms reported Cardiovascular: No symptoms reported Respiratory: No symptoms reported Gastrointestinal: No symptoms reported Genitourinary: No symptoms reported Male Genitourinary: No symptoms reported Musculoskeletal: Ankle swelling - Right ankle painful swollen bruised her to pop Skin: Other Hematologic/Lymphatic: No symptoms reported Neurological/Psychological: No symptoms reported -: Yes All other systems reviewed and negative Physical Exam - Vital signs Vitals: Temp Pulse BP Pulse Ox 98.6 F 73 94/70 L 96 02/18/17 09:16 02/18/17 09:16 02/18/17 09:16 02/18/17 09:16 Interpretation: Normal - General General appearance: Appears well, Alert - HEENT Head: Normocephalic, Atraumatic Eyes: Normal Pupils: PERRL - Respiratory Respiratory status: No respiratory distress Chest status: Nontender Breath sounds: Normal Chest palpation: Normal - Cardiovascular Rhythm: Regular Heart sounds: Normal auscultation Murmur: No - Abdominal Inspection: Normal Distension: No distension Bowel sounds: Normal Tenderness: Nontender Organomegaly: No organomegaly - Back Back: Normal, Nontender - Extremities General upper extremity: Normal inspection, Nontender, Normal color, Normal ROM , Normal temperature General lower extremity: Normal temperature Ankle: Tender, Ecchymosis, Edema, Limited ROM, Unable to bear weight. No: Instability, Laceration - Neurological Neuro grossly intact: Yes Cognition: Normal Orientation: AAOx4 Hsiv Coma Scale Eye Opening: Spontaneous [place] Coma Scale Verbal: Oriented Shiv Coma Scale Motor: Obeys Commands [place] Coma Scale Total: 15 Speech: Normal Motor strength normal: LUE, RUE, LLE, RLE Sensory: Normal - Psychological Associated symptoms: Normal affect, Normal mood - Skin Skin Temperature: Warm Skin Moisture: Dry Skin Color: Normal Course - Re-evaluation Re-evalutation: 02/18/17 10:28 X-ray demonstrates a spiral fracture of the distal fibula nondisplaced. Will treat patient with [place] dispense pack and a posterior ankle splint. Patient was instructed to call orthopedics this morning to schedule a follow-up visit for his fracture. Patient was given instructions on elevation ice and ibuprofen. Patient does not work at this time. He was also encouraged to decrease his amount of cigarettes he smokes daily as he smokes a pack per day with a history of COPD. His blood pressure was 94/70 he is on blood pressure medicine he was instructed to please call his primary doctor to discuss his hypertension medication. - Vital Signs Vital signs: Temp Pulse Resp BP Pulse Ox 98.7 F 71 16 135/84 H 96 02/18/17 10:46 02/18/17 10:46 02/18/17 10:46 02/18/17 10:46 02/18/17 10:46 - Diagnostic Test Radiology reviewed: Image reviewed, Reports reviewed Procedures - Immobilization Right Leg Time completed: 10:28 Immobilizer type: Crutches, Posterior ankle Performed by: PCT Post-Proc Neuro Vasc Exam: Normal Alignment checked and good: Yes Discharge - Discharge Clinical Impression: Nondisplaced fracture of distal end of fibula Condition: Stable Disposition: HOME, SELF-CARE Additional Instructions: Fracture of Distal Fibula You have a fracture at the end of the fibula, the smaller bone in the lower leg. The fracture is a spiral fracture of the fibula. This fracture will usually heal well, but must be protected from the pull of ligaments and tendons at the ankle. If this fracture rotates out of position (or is felt likely to rotate), it must be operated on. Initially, the extremity should be kept elevated, with ice packs applied frequently. This fracture is usually treated with a cast or walking boot. If a walking boot has been selected, it's critical that it NOT be removed without the doctor's approval, not even for sleeping or baths. Healing of this fracture takes about four to eight weeks. Younger patients heal more quickly. An X-ray is usually required during healing to check for complications and to assess healing. Call the doctor or return at once if there is severe swelling, increasing pain, or numbness in the foot. SPLINT PRECAUTIONS: A splint has been placed. This will protect the area while healing begins. Your problem does NOT normally require a cast. It MUST, however, be held still! Keep the splint on ALL THE TIME until instructed to remove it by the doctor. As you begin to use the area, be careful. You shouldn't do anything which causes discomfort -- you may disturb the injury even with the splint in place. After the initial period of rest and elevation, if splint does not prevent pain when you move, come back. You may require placement of a different splint , or a cast. If there is unexpected severe pain, or numbness, discoloration, or swelling beyond the splint, you should return at once. If you feel that the splint has broken or become loose, come back. USE OF CRUTCHES: The doctor has recommended that you not bear weight at this time. You will need to use crutches. Adjust the crutches so the tops come to about two inches under the armpit while you are standing upright. Use your hands -- not your armpits -- to support your weight. To get into a chair, support yourself with one crutch on the injured side. Hold the chair with the other hand, then lower yourself while putting all your weight on the good leg. Going up stairs is `good leg up, step up, then bring up crutches and bad leg.' Down stairs is `bad leg and crutches down, then bring good leg down.' If you develop numbness or swelling in an arm or hand, you are using the crutches incorrectly. Return if you are having any problems with the crutches. ICE & ELEVATION: Apply ice packs frequently against the painful area. Many different schedules are recommended, such as "20 minutes on, 20 minutes off" or "one hour ice, two hours rest." If you need to work, you may need to go longer between ice treatments. You should plan to have the area ice packed AT LEAST one- fourth of the time. The ice should be applied over the wrap, tape, or splint, or over a layer of cloth -- not directly against the skin. Some ice bags have a built-in cloth and can be put directly on the skin. Your injured part should be elevated as much as possible over the next 48 hours. Try to keep the injury above the level of the heart. Avoid use of the injured area. Elevation and rest will decrease the swelling. USE OF [id number] IBUPROFEN: Ibuprofen (Advil, Nuprin, Medipren, Motrin IB) is a medication for fever and pain control. In addition, it has anti- inflammatory effects which may be beneficial, especially in the treatment of injuries. It's best to take ibuprofen with food. Persons with ulcer disease or allergy to aspirin should notify their physician of this before taking ibuprofen. Ibuprofen can be given every four to six hours, for a total of four doses daily. Age Pain or fever dose Antiinflammatory dose 6-8 yr 200 mg (1 tab) 200 mg (1 tab) 9-11 yr 200 mg (1 tab) 200-400 mg (1-2 tab) 11-14 yr 200-400 mg (1-2 tab) 400 mg (2 tab) 15-adult 400 mg (2 tab) 600 mg (3 tab) ORAL NARCOTIC MEDICATION: You have been given a [place] dispense pack for pain control. This medication is a narcotic. It's best taken with food, as nausea can result if taken on an empty stomach. Don't operate machinery or drive within six hours of taking this medication. Do not combine this medicine with alcohol, or with any medication which can cause sedation (such as cold tablets or sleeping pills) unless you get permission from the physician. Narcotics tend to cause constipation. If possible, drink plenty of fluids and eat a diet high in fiber and fruits. Please be aware that prescription narcotics also have the potential for abuse. People become addicted to these medications because of the general sense of wellbeing that they induce. This feeling along with a significant reduction in tension, anxiety, and aggression provides a stimulating seductive quality to these drugs. Once your pain is under control, we encourage you to discard your unused narcotics. FOLLOW-UP CARE: If you have been referred to a physician for follow-up care, call the physician s office for an appointment as you were instructed or within the next two days. If you experience worsening or a significant change in your symptoms, notify the physician immediately or return to the Emergency Department at any time for re-evaluation. Forms: Smoking Cessation Education Referrals: FELIPE KELLER MD [ACTIVE STAFF] - Follow up as needed
--- NOTE | 2017-02-18 10:11 | RADIOLOGY REPORT (SQ) ---
EXAM DESCRIPTION: ANKLE RIGHT COMPLETE COMPLETED DATE/TIME: 02/18/2017 9:57 am REASON FOR STUDY: slipped twisted ankle COMPARISON: None. NUMBER OF VIEWS: Three views. TECHNIQUE: AP, lateral, and oblique radiographic images acquired of the right ankle. LIMITATIONS: None. FINDINGS: MINERALIZATION: Normal. BONES: Acute nondisplaced spiral fracture distal right fibular diaphysis, just proximal to the ankle mortise. JOINTS: Definite ankle joint effusion. No widening of the ankle mortise. SOFT TISSUES: Diffuse lateral soft tissue swelling. No radiopaque foreign body OTHER: No other significant finding. IMPRESSION: Acute nondisplaced spiral fracture distal right fibular diaphysis TECHNICAL DOCUMENTATION: JOB ID: [id number] [employer]- All Rights Reserved
[2017-02-18] MEDS ORDERED: HYDROCODONE/ACETAMINOPHEN 5-325 MG 6 TAB/DSPK PO PRN (10:24)
[2017-02-18 10:51] VITALS: BP 135/84
== END 2017-02-18 10:52 | disposition home or self-care (01) ==
LOC: ER 09:03
DX: S82.444A Nondisplaced spiral fracture of shaft of right fibula, initial encounter for closed fracture (principal); M25.571 Pain in right ankle and joints of right foot; W18.49XA Other slipping, tripping and stumbling without falling, initial encounter; Y92.009 Unspecified place in unspecified non-institutional (private) residence as the place of occurrence of the external cause; I10 Essential (primary) hypertension; J44.9 Chronic obstructive pulmonary disease, unspecified; F17.210 Nicotine dependence, cigarettes, uncomplicated; Z88.0 Allergy status to penicillin; Z88.1 Allergy status to other antibiotic agents; Z71.6 Tobacco abuse counseling; Z85.47 Personal history of malignant neoplasm of testis
CPT/HCPCS: 99283; 73610; 29515; A9270

== ENCOUNTER → 2018-02-27 | Outpatient (CLI) | payer MEDICAID, MEDICARE ==
--- NOTE | 2018-02-28 09:29 | XCELERA REPORT ---
[address] [address] Lower Extremity Arterial Evaluation Name: DAISY PURDY Age: 62 yrs Gender: Male : 1955 Patient Status: Outpatient Patient Location: [facility] Study Date: 02/27/2018 07:50 AM Procedure: A color flow and duplex scan of the lower extremity arteries was performed bilaterally with velocity and waveform anaylsis. Reason For Study: PVD Ordering Physician: LILO JEREZ Performed By: Milka Patel Measurements and Calculations Right Left PAPER SALES REPRESENTATIVE PSV -64.9 -82.0 cm/sec Prox PFA PSV 69.2 73.1 cm/sec Prox SFA PSV 45.2 73.9 cm/sec Mid SFA PSV 47.6 43.6 cm/sec Dist SFA PSV 70.3 47.9 cm/sec Dist Pop A PSV 25.9 38.0 cm/sec Mid SUMIT PSV 33.7 10.0 cm/sec Mid SIDE SPLITTER PSV 45.6 56.3 cm/sec Freddy Pedis PSV -30.8 -11.4 cm/sec Right Side Arterial Evaluation Normal velocity and triphasic waveforms noted from the Common Femoral artery to the Posterior Tibial artery .Biphasic with borderline low velocity in the Anterior Tibial artery. 20-49% stenosis at the Anterior Tibial artery. Ankle Brachial index not done as the patient declined test. Left Side Arterial Evaluation Normal velocity and triphasic waveforms noted from the Common Femoral artery to the Posterior Tibial artery .Biphasic with low velocity in the Anterior Tibial artery. 20-49% stenosis at the Anterior Tibial artery. Ankle. Interpretation Summary Mild hemodynamically significant lesions in the bilateral lower extremities, on duplex imaging, at rest. : LILO JEREZ > Chester Meraz
== END ==
LOC: SP 07:37
PROVIDERS: ATTEND Internal Medicine
DX: I73.9 Peripheral vascular disease, unspecified (principal)
CPT/HCPCS: 93925

== ENCOUNTER 2019-02-22 23:02 | Emergency (ER) | payer MEDICARE ==
[2019-02-22] MEDS ORDERED: ASPIRIN 81 MG TABLET, CHEWABLE PO ONE (23:39)
[2019-02-23] MEDS ORDERED: IPRATROPIUM/ALBUTEROL 0.5-2.5 MG/3 ML AMPUL NEB ONE (00:43)
[2019-02-23] MEDS ORDERED: FAMOTIDINE 20 MG TABLET PO ONE (00:44)
[2019-02-23] MEDS ORDERED: METHYLPREDNISOLONE INJ 125 MG/2 ML SDV IV ONE (00:44)
[2019-02-23] MEDS ORDERED: ONDANSETRON HCL INJ/PF 4 MG/2 ML SDV IV ONE (00:44)
[2019-02-23] MEDS ORDERED: HYDROMORPHONE HCL INJ/PF 2 MG/ML AMPULE IV ONE (00:44)
[2019-02-23] MEDS ORDERED: MAGNESIUM HYDROXIDE SUSP 30 ML UDCUP PO ONE (00:45)
[2019-02-23] MEDS ORDERED: LIDOCAINE 2% VISCOUS SOLN 20 ML UDCUP PO ONE (00:47)
--- NOTE | 2019-02-23 00:54 | ER Document Report ---
ED General - General Stated Complaint: CHEST PAIN Time Seen by Provider: 02/23/19 00:23 Primary Care Provider: LILO JEREZ MD [Primary Care Provider] - Follow up as needed TRAVEL OUTSIDE OF THE [place] IN LAST 30 DAYS: No - HPI Notes: Patient is a 63-year-old male history of COPD, chronic recurrent chest pain, hypertension, reflux presents to the emergency department with report of upper abdominal pain patient has had over the course of the last 2 days associated with his mild chronic intermittent left chest wall pain. The patient has had multiple previous work-ups with chest pain and had a negative cardiac stress test 1 year ago. He is also had previous CT scan studies done of his chest and abdomen for similar discomforts, with last negative study 3 years ago. The patient reports no Fever or chills. He questions having some mild constipation. He reports a slight increase in his baseline cough. The patient continues to vape, although he has stopped smoking cigarettes. No prior US of the abd. Patient denies any diarrhea or dysuria. No significant change in his mild chronic lower back pain. No numbness or paresthesia or incontinence. The patient does report some belching. He states he has been taking ibuprofen very regularly but only takes his acid blockers occasionally. Patient reports he previously was on Percocet and Dilaudid for pain, but is currently not on either. - Related Data Allergies/Adverse Reactions: Penicillins Allergy (Mild, Verified 07/31/14 23:28) Hives azithromycin [From Zithromax] Allergy (Verified 07/31/14 23:28) Past Medical History - General Information source: Patient - Social History Smoking Status: Current Every Day Smoker Frequency of alcohol use: None Drug Abuse: None Lives with: Family Family History: Arthritis, CAD, COPD, DM, Hyperlipidemia, Hypertension - Past Medical History Cardiac Medical History: Reports: Hx Atrial Fibrillation, Hx Hypercholesterolemia, Hx Hypertension Pulmonary Medical History: Reports: Hx Asthma, Hx Bronchitis, Hx COPD, Hx Pneumonia Denies: Hx Respiratory Failure, Hx Sleep Apnea, Hx Tuberculosis Neurological Medical History: Denies: Hx Parkinson's Disease Renal/ Medical History: Denies: Hx Peritoneal Dialysis Malignancy Medical History: Reports Hx Testicular Cancer Musculoskeletal Medical History: Reports Hx Arthritis, Reports Hx Musculoskeletal Deformity, Reports Hx Musculoskeletal Trauma, Denies Hx Systemic Lupus Erythematosus Traumatic Medical History: Reports: Hx Fractures - pelvis, left ankle, left clavicle Past Surgical History: Reports: Hx Orthopedic Surgery - Pelvis left ankle left clavicle, Hx Testicular Surgery - Testicular cancer left testicle removed, Hx Tonsillectomy - Immunizations Hx Diphtheria, Pertussis, Tetanus Vaccination: Yes Hx Pneumococcal Vaccination: 11/02/09 Review of Systems - Review of Systems -: Yes All other systems reviewed and negative Physical Exam - Vital signs Vitals: Temp Pulse Resp BP Pulse Ox 97.7 F 85 24 H 149/95 H 97 02/22/19 23:39 02/22/19 23:39 02/22/19 23:39 02/22/19 23:39 02/22/19 23:39 - Notes Notes: PHYSICAL EXAMINATION: GENERAL: Well-appearing, well-nourished and in no acute distress. HEAD: Atraumatic, normocephalic. EYES: Pupils equal round and reactive to light, extraocular movements intact, sc curry anicteric, conjunctiva are normal. ENT: Nares patent, oropharynx clear without exudates. Moist mucous membranes. NECK: Normal range of motion, supple without lymphadenopathy LUNGS: Breath sounds equal bilaterally. No rales or rhonchi, but patient has wheezes noted bilaterally. No accessory muscle use or retraction. Patient has reproducible left chest wall pain on palpation. No crepitance or bony deformity. HEART: Regular rate and rhythm without murmurs ABDOMEN: Soft abdomen. No guarding, no rebound. No masses appreciated. Patient has pain appreciated more through the midepigastric region. positive Tapia's sign, but mild pain midepig region. No rebound or pulsatile mass. Musculoskeletal: Normal range of motion, no pitting or edema. No cyanosis. Negative Homans. No palpable cord. NEUROLOGICAL: Cranial nerves grossly intact. Normal speech, normal gait. Normal sensory, motor exams PSYCH: Normal mood, normal affect. SKIN: Warm, Dry, normal turgor, no rashes or lesions noted. Course - Re-evaluation Re-evalutation: 02/23/19 02:15 Patient vomited after p.o. meds. IV Zofran ordered. Patient was given a DuoNeb for wheezing and repeat exam showed improvement in his wheezing. IV solumedrol given. 02/23/19 02:16 Lab work, UA, CXR and RUQ abd US ordered on the patient. No obvious evidence for acute MT, but heart enzymes ordered on the patient. 02/23/19 02:18 - Vital Signs Vital signs: Temp Pulse Resp BP Pulse Ox 97.7 F 85 24 H 149/95 H 97 02/22/19 23:39 02/22/19 23:39 02/22/19 23:39 02/22/19 23:39 02/22/19 23:39 - EKG Interpretation by Me EKG shows normal: Sinus rhythm Additional EKG results interpreted by me: 02/23/19 00:55 EKG is interpreted by me showed normal sinus rhythm heart rate of 80. There is no gross evidence for acute MT or ischemia noted. Discharge - Discharge Clinical Impression: COPD exacerbation Vomiting Qualifiers: Vomiting type: unspecified Vomiting Intractability: non-intractable Nausea presence: with nausea Qualified Code(s): R11.2 - Nausea with vomiting, unspecified Chest pain Qualifiers: Chest pain type: other chest pain Qualified Code(s): R07.89 - Other chest pain; R07.8 - Other chest pain Disposition: OTHER Referrals: LILO JEREZ MD [Primary Care Provider] - Follow up as needed
[2019-02-23 02:37] LABS: HEMATOCRIT 42.5 % (37.9-51.0); HEMOGLOBIN 14.6 g/dL (13.5-17.0); MEAN CORPUSCULAR HEMOGLOBIN 30.7 pg (27.0-33.4); MEAN CORPUSCULAR HGB CONC 34.5 g/dL (32.0-36.0); MEAN CORPUSCULAR VOLUME 89 fl (80-97); PLATELET COUNT 278 10^3/uL (150-450); RED BLOOD COUNT 4.76 10^6/uL (4.35-5.55); RED CELL DISTRIBUTION WIDTH 14.3 % (11.5-14.0); WHITE BLOOD COUNT 22.7 10^3/uL (4.0-10.5)
[2019-02-23 02:52] LABS: ABSOLUTE MONOCYTES # (MANUAL) 1.6 10^3/uL (0.1-1.4); ALKALINE PHOSPHATASE 107 U/L (38-126); ANION GAP 11 (5-19); ANISOCYTOSIS SLIGHT; ASPARTATE AMINO TRANSFERASE 23 U/L (17-59); BASOPHILS % (MANUAL) 0 % (0-2); BILIRUBIN,DIRECT 0.2 mg/dL (0.0-0.4); BILIRUBIN,TOTAL 0.4 mg/dL (0.2-1.3); BLOOD UREA NITROGEN 12 mg/dL (7-20); CALCIUM 9.4 mg/dL (8.4-10.2); CARBON DIOXIDE 19 mmol/L (22-30); CHLORIDE 107 mmol/L (98-107); CREATINE KINASE 49 U/L (55-170); EOSINOPHILS % (MANUAL) 3 % (0-6); GLUCOSE 135 mg/dL (75-110); LYMPHOCYTES % (MANUAL) 9 % (13-45); MONOCYTES % (MANUAL) 7 % (3-13); POTASSIUM 4.4 mmol/L (3.6-5.0); SEGMENTED NEUTROPHILS % (MAN) 81 % (42-78); TOTAL CELLS COUNTED 100; TOTAL PROTEIN 6.7 g/dL (6.3-8.2)
[2019-02-23 02:53] LABS: PLATELET COMMENT ADEQUATE
--- NOTE | 2019-02-23 02:59 | RADIOLOGY REPORT (SQ) ---
EXAM DESCRIPTION: XR CHEST 2 VIEWS COMPLETED DATE/TME: 02/22/2019 00:00 CLINICAL HISTORY: 63 years, Male, cp COMPARISON: 08/17/2016 NUMBER OF VIEWS: One TECHNIQUE: AP view of the chest LIMITATIONS: None. FINDINGS: The lungs are clear. The heart is normal in size. There is no pneumothorax or pleural effusion. There is no acute fracture. IMPRESSION: No acute cardiopulmonary abnormality copyright 2010 [employer]- All Rights Reserved
[2019-02-23 03:03] LABS: CREATINE KINASE MB 0.88 ng/mL (<4.55)
[2019-02-23 03:04] LABS: TROPONIN I < 0.012 ng/mL
--- NOTE | 2019-02-23 03:15 | RADIOLOGY REPORT (SQ) ---
EXAM DESCRIPTION: US ABDOMEN LIMITED COMPLETED DATE/TME: 02/23/2019 02:10 CLINICAL HISTORY: 63 years, Male, RUQ abd pain COMPARISON: None. TECHNIQUE: Grayscale and color images of the abdomen were obtained. LIMITATIONS: None. FINDINGS: The pancreas appears echogenic. The visualized portions of the abdominal aorta and IVC appear unremarkable. The liver demonstrates increased echotexture and measures 19.3 cm. The main portal vein demonstrates normal hepatopedal flow. A small stone is noted near the gallbladder neck. There is no wall thickening or pericholecystic fluid. No sonographic Tapia sign was elicited. The common bile duct is normal in caliber measuring up to 2 mm in diameter. The right kidney measures 11.4 x 6.0 x 6.3 cm. There is a 1.8 x 1.3 cm right renal cyst. No hydronephrosis. IMPRESSION: Enlarged fatty liver. Cholelithiasis. copyright 2010 [employer]- All Rights Reserved
[2019-02-23] MEDS ORDERED: MORPHINE SULFATE 10 MG/ML INJ IV ONE (03:28)
[2019-02-23 03:59] LABS: APPEARANCE,URINE CLEAR; BILIRUBIN,URINE NEGATIVE (NEGATIVE); COLOR,URINE YELLOW; GLUCOSE, URINE NEGATIVE (NEGATIVE); KETONES,URINE NEGATIVE (NEGATIVE); LEUKOCYTE ESTERASE,URINE NEGATIVE (NEGATIVE); NITRITE,URINE NEGATIVE (NEGATIVE); PROTEIN,URINE NEGATIVE (NEGATIVE); UROBILINOGEN,URINE NEGATIVE mg/dL (<2.0)
--- NOTE | 2019-02-23 05:16 | RADIOLOGY REPORT (SQ) ---
EXAM DESCRIPTION: CT ABDOMEN PELVIS WITH IV CONTRAST COMPLETED DATE/TME: 02/23/2019 03:24 CLINICAL HISTORY: 63 years, Male, Leukocytosis and severe abd pain COMPARISON: 04/16/2014 TECHNIQUE: Axial CT images of the abdomen and pelvis were obtained after the administration of IV contrast. Sagittal and coronal reformats were performed. DLP 958 Images stored on PACS. All CT scanners at this facility use dose modulation, iterative reconstruction, and/or weight based dosing when appropriate to reduce radiation dose to as low as reasonably achievable (ALARA). [facility]: Dose Right [facility]: CareDose [facility]: Dose Right [facility]: Teradose 4D [facility]: [employer] LIMITATIONS: None. FINDINGS: The lung bases are clear. The liver contains multiple cysts. A punctate stone is noted within the gallbladder. The pancreas, spleen, and adrenal glands are unremarkable. There is a 1.9 cm cyst within the right kidney. There is no evidence of hydronephrosis bilaterally. The left kidney contains a nonobstructing calcifications which are likely vascular. There is no intraperitoneal free air or fluid. There is no lymphadenopathy. There are atherosclerotic calcifications involving the abdominal aorta. No evidence of an aneurysm or dissection. The stomach and small bowel are unremarkable. No evidence of appendicitis. The colon contains a moderate amount of stool. The urinary bladder and prostate gland are unremarkable. There are postsurgical changes to the left hemipelvis. IMPRESSION: No acute findings. Cholelithiasis. TECHNICAL DOCUMENTATION: Quality ID # [id number]: Final reports with documentation of one or more dose reduction techniques (e.g., Automated exposure control, adjustment of the mA and/or kV according to patient size, use of iterative reconstruction technique) copyright 2011 [employer]- All Rights Reserved
[2019-02-23] MEDS ORDERED: HYDROCODONE/ACETAMINOPHEN 5-325 MG (6 TAB/ER DISP) PO PRN (05:25)
[2019-02-23] MEDS ORDERED: ONDANSETRON ODT 4 MG TAB (6 TAB/ER DISP) PO PRN (05:25)
[2019-02-23 05:30] VITALS: BP 179/109
--- NOTE | 2019-02-23 09:28 | EKG REPORT ---
SEVERITY:- NORMAL ECG - SINUS RHYTHM : Confirmed by: Tatianna Patton MD 23-Feb-2019 09:27:02
== END 2019-02-23 05:43 | disposition home or self-care (01) ==
LOC: ER 23:02
DX: J44.1 Chronic obstructive pulmonary disease with (acute) exacerbation (principal); K80.20 Calculus of gallbladder without cholecystitis without obstruction; R11.2 Nausea with vomiting, unspecified; R10.9 Unspecified abdominal pain; D72.829 Elevated white blood cell count, unspecified; R07.89 Other chest pain; M54.5 Low back pain; G89.29 Other chronic pain; R05 Cough; R14.2 Eructation; I10 Essential (primary) hypertension; F17.290 Nicotine dependence, other tobacco product, uncomplicated; Z79.1 Long term (current) use of non-steroidal anti-inflammatories (NSAID); Z87.01 Personal history of pneumonia (recurrent); Z88.0 Allergy status to penicillin; Z88.1 Allergy status to other antibiotic agents
CPT/HCPCS: 93005; 36415; 82553; 82550; 83690; 85025; 80053; 81001; 84484; 83880; 71046; 76705; 74177; 93010; A9270 ×5; J3490 ×2; J2270; J1170; J2405; 94640; 96374; 96375; 99284; J7620

== ENCOUNTER → 2020-02-17 | Outpatient (CLI) | payer MEDICAID, MEDICARE ==
--- NOTE | 2020-02-17 14:14 | RADIOLOGY REPORT (SQ) ---
EXAM DESCRIPTION: ARTERIAL LOWER EXTREM BILAT IMAGES COMPLETED DATE/TIME: 02/17/2020 1:57 pm REASON FOR STUDY: PVD I73.9 PERIPHERAL VASCULAR DISEASE, UNSPECIFIED COMPARISON: 02/27/2018. TECHNIQUE: Dynamic and static vinson scale and color images acquired of the lower extremity arteries. Additional selected spectral images recorded. ABIs recorded. LIMITATIONS: None. FINDINGS: RIGHT LEG: ABIS: Posterior tibial 0.73. Dorsalis pedis could not be obtained. INFLOW ARTERIES: Normal, no obstruction evident. FEMORAL ARTERIES:Triphasic waveform in the common femoral and profunda femoral artery.. Occluded supe rficial femoral artery throughout. Reconstitution distally at the popliteal artery. POPLITEAL ARTERY:Monophasic waveforms. Dampened flow. PATENT TIBIOPERONEAL TRUNK AND 3 VESSEL RUNOFF: Dampened monophasic flow. Occluded mid and distal an terior tibial artery. TBI: Not performed. OTHER: No other significant finding. LEFT LEG: ABIS: Normal, over 1.0. INFLOW ARTERIES: Normal, no obstruction evident. FEMORAL ARTERIES:Triphasic waveforms. Normal, no velocity elevation to suggest focal stenosis. Normal color Doppler evaluation. No aneurysm. POPLITEAL ARTERY:Triphasic waveforms. Normal, no velocity elevation to suggest focal stenosis. Normal color Doppler evaluation. No aneurysm. PATENT TIBIOPERONEAL TRUNK AND 3 VESSEL RUNOFF: Patent posterior tibial and dorsalis pedis arteries w ith biphasic to triphasic waveform. Occluded mid and distal anterior tibial artery. TBI: Not performed. OTHER: No other significant finding. IMPRESSION: 1. 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 DAMPENED FLOW DISTALLY. 2. OCCLUSION OF THE RIGHT AND LEFT ANTERIOR TIBIAL ARTERIES. 3. DECREASED ANKLE-BRACHIAL INDEX IN THE RIGHT LEG CONSISTENT WITH CLAUDICATION. NORMAL ANKLE-BRACHI AL INDEX IN THE LEFT LEG. COMMENT: The findings were sent to the Radiology Results Communication Center at 14:07 on 0 to be communicated to a licensed caregiver. [facility] NORMAL: Greater than 1.0 MINIMAL DISEASE: 0.9 to 1.0 CLAUDICATION: 0.5 to 0.9 SEVERE ARTERIAL DISEASE: Less than 0.5 [facility] NORMAL: Greater than 1.0 (1.2 If Heavy Calcifications) NORMAL TO MILD ISCHEMIA: 0.8 to 1.0 MODERATE ISCHEMIA: 0.4 to 0.8 SEVERE ISCHEMIA: Less than 0.4 TECHNICAL DOCUMENTATION: JOB ID: [id number] 2010 [employer]- All Rights Reserved Reading location - IP/workstation name: [email or web address]
== END ==
LOC: RAD 09:54
PROVIDERS: ATTEND Internal Medicine
DX: I73.9 Peripheral vascular disease, unspecified (principal)
CPT/HCPCS: 93925